=== PATIENT | male | born 1995 | race Caucasian/White ===

== ENCOUNTER 2022-08-21 20:25 | Emergency (ER) | payer MEDICAID ==
[~2022-08-21] VITALS: Ht 172.7 cm; Wt 76.2 kg
[2022-08-21 21:35] VITALS: BP 120/78
--- NOTE | 2022-08-21 23:51 | NUR ---
PATIENT LEFT WITHOUT BEING SEEN BY PROVIDER. NO FURTHER CARE PROVIDED FOR PATIENT.
== END 2022-08-21 22:36 | disposition left against medical advice (07) ==
LOC: MED 20:25
DX: R42 Dizziness and giddiness (principal); Z53.21 Procedure and treatment not carried out due to patient leaving prior to being seen by health care provider
CPT/HCPCS: 99281